=== PATIENT | female | born 1985 | race Caucasian/White ===

== ENCOUNTER 2016-07-27 13:10 | Emergency (ER) | payer SELFPAY ==
[2016-07-27] MEDS ORDERED: OPTIRAY 350 100 ML VIAL HMH IV ONE (13:11)
[2016-07-27] MEDS ORDERED: LIDOCAINE 2% VISC 15 ML UDC ONE (16:43)
[2016-07-27] MEDS ORDERED: ALU/MAG/SIM 30 ML UDC ONE (16:43)
[2016-07-27] MEDS ORDERED: SODIUM CHLORIDE 0.9% 1,000 ML ONE (17:26)
[2016-07-27] MEDS ORDERED: KETOROLAC 30 MG/ML VIAL ONE (19:18)
== END 2016-07-27 19:37 | disposition home or self-care (01) ==
LOC: ER 13:10
DX: R07.89 Other chest pain (principal); Z79.84 Long term (current) use of oral hypoglycemic drugs; Z87.891 Personal history of nicotine dependence
CPT/HCPCS: 36415; 71020; 71260; 80053; 82553; 84484; 84703; 85025; 85379; 93005; 96361; 96374